=== PATIENT | male | born 1995 ===

== ENCOUNTER 2017-06-03 09:24 | Emergency (ER) | payer OTHER ==
--- NOTE | 2017-06-03 10:32 | UC ---
UC General HPI - HPI Summary HPI Summary: Patient presents to the clinic with complaints of discomfort with passing gas and/or BM. He also reports mucous from the rectum. He states that the symptoms began about 9 months ago. He denies any abdominal, testicular pain, fever, chills, nausea, vomiting, diarrhea or change in appetite. - History of Current Complaint Chief Complaint: UCGI Stated Complaint: BOWEL AND RECTAL DISCOMFORT Time Seen by Provider: 06/03/17 09:53 Hx Obtained From: Patient Onset/Duration: Sudden Onset, Lasting Days Timing: Constant Onset Severity: Moderate Current Severity: Moderate - Allergy/Home Medications Allergies/Adverse Reactions: Allergies Allergy/AdvReac Type Severity Reaction Status Date / Time Loracarbef [From Lorabid] Allergy Vomiting Verified 06/03/17 09:39 PMH/Surg Hx/FS Hx/Imm Hx Previously Healthy: Yes - Surgical History Surgical History: None - Social History Alcohol Use: Occasionally Substance Use Type: None Smoking Status (MU): Never Smoked Tobacco Review of Systems Constitutional: Negative Skin: Negative Eyes: Negative ENT: Negative Respiratory: Negative Cardiovascular: Negative Gastrointestinal: Negative Genitourinary: Negative Motor: Negative Neurovascular: Negative Musculoskeletal: Negative Neurological: Negative All Other Systems Reviewed And Are Negative: Yes Physical Exam Triage Information Reviewed: Yes Appearance: Well-Appearing Vital Signs: Initial Vital Signs Temp 98.0 F 06/03/17 09:39 Pulse 75 06/03/17 09:39 Resp 18 06/03/17 09:39 BP 111/55 06/03/17 09:39 Pulse Ox 99 06/03/17 09:39 Vital Signs Reviewed: Yes Eye Exam: Normal ENT Exam: Normal Neck exam: Normal Respiratory Exam: Normal Cardiovascular Exam: Normal Abdominal Exam: Normal Abdomen Description: Positive: Other: - rectal exam, reveals inflammed erythemic tissue of anus, small hemorriod noted internally at three oclock, no obvious fissues. Bowel Sounds: Positive: Present Course/Dx - Course Course Of Treatment: Patient presents with complaints of rectal pain with BM, and or sitting. He also noted mucous when he passes stool. His VS are normal and he is afebrile. His rectal exam reveals small internal hemorroid, and slight external swelling of the anal tissue at three oclock. He was given anusol hc to use qhs for 10 days, and nystatin ointment to apply externally for yeast infection. He was referred to GI for follow up as he need to be evaluated for IBS, and or dietary intolerances. He verbalized understanding of the instructions and in agreement with the discharge plan. - Differential Dx - Multi-Symptom Differential Diagnoses: Other - rectal pain yeast infection internal hemorriod Provider Diagnoses: yeast infection. internal hemorroid. rectal pain Discharge - Discharge Plan Condition: Stable Disposition: HOME Prescriptions: Hydrocortisone SUPP* [Anusol HC Supp*] 25 mg OK DAILY PRN #10 supp PRN Reason: rectal pain Nystatin OINT* 1 applic TOPICAL TID #1 tube Patient Education Materials: Skin Yeast Infection (ED), Rectal Pain (ED) Referrals: Noe Chavez MD [Medical Doctor] -
== END 2017-06-03 10:30 | disposition home or self-care (01) ==
LOC: UCEAST 09:24
DX: K64.8 Other hemorrhoids (principal); K62.89 Other specified diseases of anus and rectum; B37.89 Other sites of candidiasis
CPT/HCPCS: 99202; G0463